=== PATIENT | female | born 1970 | race Caucasian/White ===

== ENCOUNTER → 2020-05-09 | Outpatient (CLI) | payer BC ==
[~2020-05-09] MED LIST: ANAPROX DS550 MG PO; ANTIVERT/2525 MG PO; AUGMENTIN 875 M1 TAB PO; DARVOCET N 1001 TAB PO; DIAZIDE; FLAGYL500 MG PO; K-DUR 20MEQ20 MEQ PO; LABETALOL HCL100 MG PO; LABETALOL100 MG PO; MACROBID100 M1 PO; NKHM; PRENATAL VITAMI1 TAB PO; TIGAN300 M1 PO; TRIAMTERENE AND1 TAB PO; ZOFRAN ODT4 MG SL; ZOFRAN4 MG PO
== END | disposition home or self-care (01) ==
LOC: COVID19 03:02
DX: R05 Cough (principal); R07.89 Other chest pain; Z20.828 Contact with and (suspected) exposure to other viral communicable diseases

== ENCOUNTER 2020-05-21 15:31 | Emergency (ER) | payer BC ==
[2020-05-21] MEDS ORDERED: ANTIBIOTIC28.4 GM T (16:45)
[2020-05-21] MEDS ORDERED: CEPHALEXIN500 M1 PO (16:45)
== END 2020-05-21 17:38 | disposition home or self-care (01) ==
LOC: ED 15:31
DX: S61.304A Unspecified open wound of right ring finger with damage to nail, initial encounter (principal); Z79.899 Other long term (current) drug therapy; W25.XXXA Contact with sharp glass, initial encounter; Y93.89 Activity, other specified; Y92.89 Other specified places as the place of occurrence of the external cause; Y99.8 Other external cause status

== ENCOUNTER 2020-11-25 07:31 | Emergency (ER) | payer BC ==
[~2020-11-25] VITALS: Wt 68.0 kg
[~2020-11-25 07:31] MED LIST changes: +ANTIBIOTIC28.4 GM T; +CEPHALEXIN500 M1 PO
[2020-11-25] MEDS ORDERED: CARVEDILOL3.125 MG PO (07:39)
== END 2020-11-25 10:05 | disposition home or self-care (01) ==
LOC: ED 07:31
DX: M54.5 Low back pain (principal); I10 Essential (primary) hypertension; Z79.899 Other long term (current) drug therapy; Z87.442 Personal history of urinary calculi; W10.8XXA Fall (on) (from) other stairs and steps, initial encounter; Y93.89 Activity, other specified; Y92.89 Other specified places as the place of occurrence of the external cause; Y99.8 Other external cause status

== ENCOUNTER 2024-07-02 20:01 | Emergency (ER) | payer BC ==
[~2024-07-02] VITALS: Ht 165.1 cm; Wt 67.6 kg
[~2024-07-02 20:01] MED LIST changes: +CARVEDILOL3.125 MG PO; +COREG6.25 MG PO; +ZESTRIL,PRINIVIL5 MG PO; +ZOLOFT25 MG PO
[2024-07-02] MEDS ORDERED: METOPROLOL SUCC25 M2 PO (20:12)
== END 2024-07-02 22:47 | disposition home or self-care (01) ==
LOC: ED 20:01
DX: S00.03XA Contusion of scalp, initial encounter (principal); S09.8XXA Other specified injuries of head, initial encounter; I10 Essential (primary) hypertension; Z98.890 Other specified postprocedural states; Z87.442 Personal history of urinary calculi; W20.8XXA Other cause of strike by thrown, projected or falling object, initial encounter; Y93.89 Activity, other specified; Y92.009 Unspecified place in unspecified non-institutional (private) residence as the place of occurrence of the external cause; Y99.8 Other external cause status